=== PATIENT | female | born 1955 | race Caucasian/White ===

== ENCOUNTER 2017-07-15 06:24 | Inpatient (IN) | payer BC ==
[2017-07-15] VITALS (7 sets, daily range): BP systolic 97–154; BP diastolic 34–87
[~2017-07-15] VITALS: Ht 160 cm; Wt 77.1 kg
[2017-07-15] MEDS ORDERED: ONDANSETRON HCL 4MG/2ML VIAL IV STA (06:36)
[2017-07-15] MEDS ORDERED: SODIUM CHLORIDE 0.9% 500 ML IV ONE (06:36)
[2017-07-15] MEDS ORDERED: MORPHINE SULFATE 4 MG/ML CPJ (NOT FOR IM USE) IV STA (06:36)
[2017-07-15 07:13] LABS: BASOPHILS % 0.4 % (0.0-2.0); EOSINOPHILS % 0.6 % (0.0-5.0); HEMATOCRIT. 28.3 % (36.0-48.0); HEMOGLOBIN. 9.4 g/dL (12.0-16.0); LYMPHOCYTES % 18.6 % (20.0-50.0); MEAN CORPUSCULAR VOLUME 96.6 fL (81.0-99.0); MEAN PLATELET VOLUME 7.7 fl (7.4-10.4); MONOCYTES % 6.4 % (2.0-8.0); PLATELET 182 x1000/uL (130-400); RED BLOOD CELL COUNT 2.93 mill/uL (4.2-5.4); RED CELL DISTRIBUTION WIDTH 16.7 % (11.6-14.6)
[2017-07-15 07:19] LABS: CHLORIDE 100 mEq/L (98-107)
[2017-07-15 07:20] LABS: INR 1.2; PARTIAL THROMBOPLASTIN TIME 24.9 sec (23.4-31.0); PROTHROMBIN TIME 12.7 sec (9.4-11.6)
[2017-07-15 07:28] LABS: CARBON DIOXIDE 21 mEq/L (21-32); CREATINE KINASE 85 IU/L (26-192); TROPONIN I < 0.02 ng/mL (0.00-0.04)
[2017-07-15 07:33] LABS: CREATINE KINASE MB FRACTION 1.2 ng/mL (0.5-3.6)
[2017-07-15] MEDS ORDERED: ENOXAPARIN 80MG/0.8ML SYR SUBCUT ONE (07:45)
[2017-07-15] MEDS ORDERED: MORPHINE SULFATE 4 MG/ML CPJ (NOT FOR IM USE) IV ONE (08:00)
[2017-07-15] MEDS ORDERED: ONDANSETRON HCL 4MG/2ML VIAL IV ONE (08:00)
[2017-07-15] MEDS ORDERED: SODIUM CHLORIDE 0.9% 10ML VIAL ONE (09:05)
[2017-07-15] MEDS ORDERED: IOHEXOL-350 100 ML BOTTLE ONE (09:05)
[2017-07-15] MEDS ORDERED: LEVOFLOXACIN 500MG PREMIX 100 ML IV ONE (09:45)
[2017-07-15] MEDS ORDERED: LORAZEPAM 2MG/ML CPJ IV ONE (10:00)
[2017-07-15] MEDS ORDERED: CLONIDINE 0.1MG TABLET PO PRN (11:15)
[2017-07-15] MEDS ORDERED: IPRATROPIUM/ALBUTEROL 0.5-3(2.5)MG/3ML NEB INH PRN (11:15)
[2017-07-15] MEDS ORDERED: DIPHENHYDRAMINE 50MG/ML VIAL IV PRN (11:15)
[2017-07-15] MEDS: HYDROCODONE/ACETAMINOPHEN 5/325MG TABLET PO PRN ×3 (11:15→23:28)
[2017-07-15] MEDS ORDERED: ACETAMINOPHEN 325MG TABLET PO PRN (11:15)
[2017-07-15] MEDS ORDERED: ONDANSETRON HCL 4MG/2ML VIAL IV PRN (11:15)
[2017-07-15] MEDS ORDERED: DEXTROSE 50% WATER 50ML SYRINGE IV PRN (11:15)
[2017-07-15] MEDS ORDERED: IPRATROPIUM/ALBUTEROL 0.5-3(2.5)MG/3ML NEB HHN PRN (12:15)
[2017-07-15] MEDS ORDERED: BLOOD SUGAR DIAGNOSTIC STRIP TEST SCH (12:30)
[2017-07-15] MEDS ORDERED: INSULIN LISPRO 100 UNITS/ML SUBCUT SCH (13:00)
[2017-07-15] MEDS ORDERED: DOCUSATE SODIUM 100MG CAPSULE PO SCH (17:00)
[2017-07-15] MEDS ORDERED: GEMF600T3 PO (17:28)
[2017-07-15] MEDS ORDERED: TUMERIC (17:31)
[2017-07-15] MEDS ORDERED: TUM (17:31)
[2017-07-15] MEDS: ZOLPIDEM TARTRATE 5MG TABLET PO PRN (23:17)
[2017-07-16] VITALS (18 sets, daily range): BP systolic 91–136; BP diastolic 44–106
[2017-07-16] MEDS: HYDROCODONE/ACETAMINOPHEN 5/325MG TABLET PO PRN ×3 (04:28→14:17)
[2017-07-16 06:30] LABS: BASOPHILS % 0.4 % (0.0-2.0); EOSINOPHILS % 0.4 % (0.0-5.0); HEMATOCRIT. 25.2 % (36.0-48.0); HEMOGLOBIN. 8.4 g/dL (12.0-16.0); LYMPHOCYTES % 18.5 % (20.0-50.0); MEAN CORPUSCULAR HEMOGLOBIN 32.3 pg (28.0-32.0); MEAN CORPUSCULAR VOLUME 96.8 fL (81.0-99.0); MEAN PLATELET VOLUME 8.2 fl (7.4-10.4); MONOCYTES % 8.2 % (2.0-8.0); NEUTROPHILS % 72.5 % (40.0-76.0); PLATELET 170 x1000/uL (130-400); RED CELL DISTRIBUTION WIDTH 16.8 % (11.6-14.6)
[2017-07-16] MEDS: GEMFIBROZIL 600MG TABLET PO SCH ×2 (07:30→16:33)
[2017-07-16] MEDS ORDERED: IOHEXOL-300 100 ML BOTTLE ONE (08:03)
[2017-07-16] MEDS ORDERED: LIDOCAINE HCL 1% 20ML VIAL (Pyxis) INJ ONE (08:03)
[2017-07-16] MEDS ORDERED: SODIUM BICARBONATE 4% (2.4MEQ) 5ML VIAL IV ONE (08:03)
[2017-07-16 08:45] LABS: CARBON DIOXIDE 23 mEq/L (21-32); CHLORIDE 97 mEq/L (98-107)
[2017-07-16 08:49] LABS: HDL CHOLESTEROL 31 mg/dL (40-59); LDL CHOLESTEROL 138 mg/dL (5-100)
[2017-07-16] MEDS ORDERED: DOCUSATE SODIUM 250MG CAPSULE PO SCH (10:15)
[2017-07-16] MEDS ORDERED: BISACODYL 5MG TABLET PO PRN (10:15)
[2017-07-16] MEDS: LEVOFLOXACIN 500MG PREMIX 100 ML IV SCH (10:51)
[2017-07-16] MEDS: MORPHINE SULFATE 2 MG/ML CPJ (NOT FOR IM USE) IV PRN ×2 (16:25→20:30)
[2017-07-16] MEDS: ZOLPIDEM TARTRATE 5MG TABLET PO PRN (20:24)
[2017-07-17] VITALS (9 sets, daily range): BP systolic 99–161; BP diastolic 44–83
[2017-07-17] MEDS: MORPHINE SULFATE 2 MG/ML CPJ (NOT FOR IM USE) IV PRN (05:04)
[2017-07-17] MEDS: GEMFIBROZIL 600MG TABLET PO SCH (07:05)
[2017-07-17 08:21] LABS: CANCER ANTIGEN 125 109.3 U/mL (0.0-38.1)
[2017-07-17] MEDS ORDERED: DOCUSATE SODIUM 250MG CAPSULE PO SCH (09:00)
[2017-07-17] MEDS: LEVOFLOXACIN 500MG PREMIX 100 ML IV SCH (09:02)
[2017-07-17] MEDS: HYDROCODONE/ACETAMINOPHEN 5/325MG TABLET PO PRN (09:02)
[2017-07-17] MEDS ORDERED: LORAZEPAM 1MG TABLET PO PRN (11:00)
[2017-07-17] MEDS ORDERED: ATOR20TA PO (13:21)
[2017-07-17] MEDS ORDERED: LEVO500T2 PO (13:21)
[2017-07-17] MEDS ORDERED: HYDR-4001 PO (13:41)
== END 2017-07-17 14:35 | disposition home or self-care (01) | DRG 166 ==
LOC: ER 06:34 → 5EST 08:00 → EDBEDREQSVC 08:03 → EDBEDREQ 08:03 → ENRESERV 08:36
PROVIDERS: ADMIT Internal Medicine; ATTEND Internal Medicine
PROC: 06H03DZ Insertion of Intraluminal Device into Inferior Vena Cava, Percutaneous Approach (ICD-10-PCS; principal; 2017-07-16)
PROC: B5191ZA Fluoroscopy of Inferior Vena Cava using Low Osmolar Contrast, Guidance (ICD-10-PCS; 2017-07-16)
PROC: B549ZZA Ultrasonography of Inferior Vena Cava, Guidance (ICD-10-PCS; 2017-07-16)
DX: J18.9 Pneumonia, unspecified organism (principal); J96.00 Acute respiratory failure, unspecified whether with hypoxia or hypercapnia; I11.0 Hypertensive heart disease with heart failure; C78.00 Secondary malignant neoplasm of unspecified lung; I31.3 Pericardial effusion (noninflammatory); I50.9 Heart failure, unspecified; C55 Malignant neoplasm of uterus, part unspecified; D64.9 Anemia, unspecified; I82.402 Acute embolism and thrombosis of unspecified deep veins of left lower extremity; G95.29 Other cord compression; E78.1 Pure hyperglyceridemia; E78.5 Hyperlipidemia, unspecified; E78.00 Pure hypercholesterolemia, unspecified; M51.37 Other intervertebral disc degeneration, lumbosacral region; K59.00 Constipation, unspecified; M50.30 Other cervical disc degeneration, unspecified cervical region; G89.29 Other chronic pain; R73.9 Hyperglycemia, unspecified; R00.0 Tachycardia, unspecified; Z92.21 Personal history of antineoplastic chemotherapy; Z90.710 Acquired absence of both cervix and uterus; Z79.899 Other long term (current) drug therapy
CPT/HCPCS: 36415; 37191; 70450; 71010; 71275; 72141; 72146; 72148; 74000; 80053; 80061; 82378; 82550; 82553; 83036; 83605; 83690; 83880; 84443; 84484; 85025; 85610; 85730; 86301; 86304; 86850; 86900; 87040; 93005; 93306; 93970; 96372; 96374; 96375; 96376; 97162; 97166; 99291; A4216; C1725; C1769; C1880; J1644; J1650; J1956; J2060; J2270; J2405; J3490; J7040; J7050; Q9967

== ENCOUNTER 2017-07-19 02:19 | Inpatient (IN) | payer BC ==
[2017-07-19] VITALS (10 sets, daily range): BP systolic 92–116; BP diastolic 46–75
[~2017-07-19] VITALS: Ht 160 cm; Wt 86.6 kg
[~2017-07-19 02:19] MED LIST: ATOR20TA PO; HYDR-4001 PO; LEVO500T2 PO
[2017-07-19] MEDS ORDERED: ONDANSETRON HCL 4MG/2ML VIAL IV STA (03:31)
[2017-07-19] MEDS ORDERED: MORPHINE SULFATE 4 MG/ML CPJ (NOT FOR IM USE) IV STA (03:31)
[2017-07-19 04:09] LABS: BG BASE EXCESS -2.7 mmol/L (-2.0-2.0); BG CARBOXYHEMOGLOBIN 0.5 % (0.5-1.5); BG DEOXYHEMOGLOBIN 5.9 % (0.0-5.0); BG FRACTION INSPIRED OXYGEN 32; BG HCO3 ACT 20.7 mmol/L (22.0-26.0); BG METHEMOGLOBIN 0.1 % (0.0-1.5); BG OXYGEN SATURATION 94.1 % (92.0-98.5); BG OXYHEMOGLOBIN 93.5 % (94.0-97.0); BG PCO2 31.6 mmHg (35.0-45.0); BG PH 7.435 (7.350-7.450); BG PO2 75.3 mmHg (75.0-100.0); BG SAMPLE SITE LEFT BRACHIAL; BG TOTAL HEMOGLOBIN 11.3 g/dL (12.0-18.0); BG VENT MODE NASAL CANNULA
[2017-07-19 04:15] LABS: BASOPHILS % 0.6 % (0.0-2.0); HEMATOCRIT. 26.7 % (36.0-48.0); HEMOGLOBIN. 8.9 g/dL (12.0-16.0); LYMPHOCYTES % 7.8 % (20.0-50.0); MEAN CORPUSCULAR HEMOGLOBIN 32.1 pg (28.0-32.0); MEAN CORPUSCULAR VOLUME 96.5 fL (81.0-99.0); MEAN PLATELET VOLUME 8.6 fl (7.4-10.4); MONOCYTES % 4.9 % (2.0-8.0); NEUTROPHILS % 86.7 % (40.0-76.0); PLATELET 191 x1000/uL (130-400); RED BLOOD CELL COUNT 2.76 mill/uL (4.2-5.4); RED CELL DISTRIBUTION WIDTH 17.3 % (11.6-14.6)
[2017-07-19 04:18] LABS: INR 1.4; PARTIAL THROMBOPLASTIN TIME 34.2 sec (23.4-31.0); PROTHROMBIN TIME 14.5 sec (9.4-11.6)
[2017-07-19 04:24] LABS: CARBON DIOXIDE 24 mEq/L (21-32); CHLORIDE 99 mEq/L (98-107); TROPONIN I < 0.02 ng/mL (0.00-0.04)
[2017-07-19] MEDS ORDERED: SODIUM CHLORIDE 0.9% 1,000 ML IV SCH (04:30)
[2017-07-19] MEDS ORDERED: IBUPROFEN 600MG TABLET PO PRN (04:30)
[2017-07-19] MEDS ORDERED: ACETAMINOPHEN 325MG TABLET PO PRN ×2 (04:30→10:15)
[2017-07-19] MEDS ORDERED: VANCOMYCIN 1 G PREMIX 200 ML IV ONE (06:15)
[2017-07-19] MEDS ORDERED: PIPERACILLIN/TAZ 3.375G PREMIX 50 ML IV ONE (06:15)
[2017-07-19] MEDS: SODIUM CHLORIDE 0.9% 1,000 ML IV SCH ×2 (10:08→18:05)
[2017-07-19] MEDS ORDERED: HYDROCODONE/ACETAMINOPHEN 5/325MG TABLET PO PRN (10:15)
[2017-07-19] MEDS ORDERED: DIPHENHYDRAMINE 50MG/ML VIAL IV PRN (10:15)
[2017-07-19] MEDS ORDERED: CLONIDINE 0.1MG TABLET PO PRN (10:15)
[2017-07-19] MEDS ORDERED: GUAIFENESIN 200MG/10ML SUGAR FREE UDC PO PRN (10:15)
[2017-07-19] MEDS ORDERED: ONDANSETRON HCL 4MG/2ML VIAL IV PRN (10:15)
[2017-07-19] MEDS ORDERED: MAGNESIUM/ALUMINUM HYDROXIDE/SIMETHICONE 30ML UDC PO PRN (10:15)
[2017-07-19] MEDS ORDERED: MORPHINE SULFATE 4 MG/ML CPJ (NOT FOR IM USE) IV PRN (10:15)
[2017-07-19] MEDS: RIVAROXABAN 15 MG TABLET PO SCH ×2 (12:30→18:05)
[2017-07-19] MEDS: PIPERACILLIN/TAZ 3.375G PREMIX 50 ML IV SCH ×2 (12:57→21:33)
[2017-07-19] MEDS ORDERED: SODIUM CHLORIDE 0.9% 10ML VIAL ONE (13:02)
[2017-07-19] MEDS ORDERED: IOHEXOL-350 100 ML BOTTLE ONE (13:02)
[2017-07-19] MEDS: ALPRAZOLAM 0.25 MG TABLET PO PRN (16:26)
[2017-07-19] MEDS: DOCUSATE SODIUM 100MG CAPSULE PO PRN (22:13)
[2017-07-19] MEDS: VANCOMYCIN 1 G PREMIX 200 ML IV SCH (22:13)
[2017-07-20] VITALS (12 sets, daily range): BP systolic 91–123; BP diastolic 49–84
[2017-07-20] MEDS: ALPRAZOLAM 0.25 MG TABLET PO PRN ×2 (01:53→07:50)
[2017-07-20] MEDS: IPRATROPIUM/ALBUTEROL 0.5-3(2.5)MG/3ML NEB INH PRN (03:21)
[2017-07-20] MEDS: PIPERACILLIN/TAZ 3.375G PREMIX 50 ML IV SCH ×3 (04:12→20:22)
[2017-07-20] MEDS: SODIUM CHLORIDE 0.9% 1,000 ML IV SCH ×2 (06:40→20:23)
[2017-07-20 07:46] LABS: MEAN CORPUSCULAR HEMOGLOBIN 32.3 pg (28.0-32.0); MEAN CORPUSCULAR VOLUME 96.9 fL (81.0-99.0); PLATELET 215 x1000/uL (130-400); RED BLOOD CELL COUNT 2.48 mill/uL (4.2-5.4)
[2017-07-20] MEDS: RIVAROXABAN 15 MG TABLET PO SCH (07:50)
[2017-07-20 08:14] LABS: CARBON DIOXIDE 18 mEq/L (21-32); CHLORIDE 101 mEq/L (98-107); HDL CHOLESTEROL 23 mg/dL (40-59); LDL CHOLESTEROL 115 mg/dL (5-100)
[2017-07-20] MEDS: LORAZEPAM 2MG/ML CPJ IV PRN ×3 (08:23→21:42)
[2017-07-20] MEDS: DOCUSATE SODIUM 100MG CAPSULE PO PRN (08:23)
[2017-07-20] MEDS: ASPIRIN 81MG EC TABLET PO SCH (08:23)
[2017-07-20] MEDS: VANCOMYCIN 1 G PREMIX 200 ML IV SCH ×2 (08:24→21:33)
[2017-07-20] MEDS: IPRATROPIUM BROMIDE (0.02%) 0.5MG/2.5ML NEB HHN PRN (09:30)
[2017-07-20 10:50] LABS: BG BASE EXCESS -6.8 mmol/L (-2.0-2.0); BG CARBOXYHEMOGLOBIN 0.1 % (0.5-1.5); BG DEOXYHEMOGLOBIN 17.9 % (0.0-5.0); BG FRACTION INSPIRED OXYGEN 50; BG HCO3 ACT 16.8 mmol/L (22.0-26.0); BG METHEMOGLOBIN 0.3 % (0.0-1.5); BG OXYHEMOGLOBIN 81.7 % (94.0-97.0); BG PCO2 26.9 mmHg (35.0-45.0); BG PH 7.414 (7.350-7.450); BG PO2 50.4 mmHg (75.0-100.0); BG SAMPLE SITE RIGHT RADIAL; BG TOTAL HEMOGLOBIN 8.5 g/dL (12.0-18.0); BG VENT MODE MASK - VENTI
[2017-07-20 12:40] LABS: PLATELET ESTIMATE NORMAL
[2017-07-21] VITALS (18 sets, daily range): BP systolic 82–150; BP diastolic 55–93
[2017-07-21] MEDS: SODIUM CHLORIDE 0.9% 1,000 ML IV SCH (02:08)
[2017-07-21] MEDS: LORAZEPAM 2MG/ML CPJ IV PRN ×3 (03:00→15:47)
[2017-07-21] MEDS: IPRATROPIUM BROMIDE (0.02%) 0.5MG/2.5ML NEB HHN PRN (03:46)
[2017-07-21] MEDS: PIPERACILLIN/TAZ 3.375G PREMIX 50 ML IV SCH ×3 (04:30→20:11)
[2017-07-21 07:27] LABS: BASOPHILS % 0.1 % (0.0-2.0); EOSINOPHILS % 0.1 % (0.0-5.0); HEMATOCRIT. 22.7 % (36.0-48.0); HEMOGLOBIN. 7.4 g/dL (12.0-16.0); LYMPHOCYTES % 7.7 % (20.0-50.0); MEAN CORPUSCULAR HEMOGLOBIN 32.3 pg (28.0-32.0); MEAN CORPUSCULAR VOLUME 98.6 fL (81.0-99.0); MEAN PLATELET VOLUME 8.3 fl (7.4-10.4); MONOCYTES % 5.1 % (2.0-8.0); PLATELET 202 x1000/uL (130-400); RED CELL DISTRIBUTION WIDTH 17.2 % (11.6-14.6)
[2017-07-21] MEDS: VANCOMYCIN 1 G PREMIX 200 ML IV SCH (08:36)
[2017-07-21] MEDS: IPRATROPIUM/ALBUTEROL 0.5-3(2.5)MG/3ML NEB INH PRN (08:45)
[2017-07-21] MEDS ORDERED: LIDOCAINE HCL 1% 20ML VIAL (Pyxis) INJ ONE (09:08)
[2017-07-21] MEDS ORDERED: SODIUM BICARBONATE 4% (2.4MEQ) 5ML VIAL IV ONE (09:09)
[2017-07-21 09:40] LABS: BG BASE EXCESS -10.4 mmol/L (-2.0-2.0); BG CARBOXYHEMOGLOBIN 0.1 % (0.5-1.5); BG DEOXYHEMOGLOBIN 1.2 % (0.0-5.0); BG FRACTION INSPIRED OXYGEN 100; BG HCO3 ACT 14.9 mmol/L (22.0-26.0); BG METHEMOGLOBIN 0.4 % (0.0-1.5); BG OXYGEN SATURATION 98.8 % (92.0-98.5); BG OXYHEMOGLOBIN 98.3 % (94.0-97.0); BG PCO2 30.2 mmHg (35.0-45.0); BG PO2 170.8 mmHg (75.0-100.0); BG PRESSURE SUPPORT 7; BG SAMPLE SITE RIGHT BRACHIAL; BG VENT MODE MASK - BIPAP; BG VENT RATE 10 set
[2017-07-21] MEDS ORDERED: DEXTROSE 50% WATER 50ML SYRINGE IV PRN (10:15)
[2017-07-21] MEDS: DEXT 5%/0.45% NACL 1000ML 1,000 ML IV SCH (10:39)
[2017-07-21] MEDS: METHYLPREDNISOLONE SOD SUCC 40 MG/ML VIAL IV SCH ×2 (10:39→17:22)
[2017-07-21] MEDS: BLOOD SUGAR DIAGNOSTIC STRIP TEST SCH ×3 (11:18→20:47)
[2017-07-21] MEDS: INSULIN LISPRO 100 UNITS/ML SUBCUT SCH ×3 (11:33→20:50)
[2017-07-21] MEDS: IPRATROPIUM/ALBUTEROL 0.5-3(2.5)MG/3ML NEB HHN SCH ×4 (12:06→23:36)
[2017-07-21] MEDS: ASPIRIN 81MG EC TABLET PO SCH (14:25)
[2017-07-21] MEDS ORDERED: FUROSEMIDE 20MG/2ML VIAL IVP NR (19:00)
[2017-07-21] MEDS: HYDROCORTISONE ACETATE 25MG SUPP PR SCH (20:48)
[2017-07-22] VITALS (46 sets, daily range): BP systolic 85–136; BP diastolic 52–85
[2017-07-22] MEDS: LORAZEPAM 2MG/ML CPJ IV PRN ×2 (01:07→08:07)
[2017-07-22] MEDS: METHYLPREDNISOLONE SOD SUCC 40 MG/ML VIAL IV SCH ×3 (01:07→17:34)
[2017-07-22] MEDS: IPRATROPIUM/ALBUTEROL 0.5-3(2.5)MG/3ML NEB HHN SCH ×3 (03:35→20:07)
[2017-07-22] MEDS: PIPERACILLIN/TAZ 3.375G PREMIX 50 ML IV SCH ×3 (04:02→20:44)
[2017-07-22] MEDS: DEXT 5%/0.45% NACL 1000ML 1,000 ML IV SCH (06:03)
[2017-07-22] MEDS: BLOOD SUGAR DIAGNOSTIC STRIP TEST SCH ×5 (06:22→23:52)
[2017-07-22 06:30] LABS: HEMATOCRIT 26.5 % (36.0-48.0); HEMOGLOBIN 8.7 g/dL (12.0-16.0); MEAN CORPUSCULAR HEMOGLOBIN 31.5 pg (28.0-32.0); MEAN CORPUSCULAR VOLUME 95.5 fL (81.0-99.0); PLATELET 168 x1000/uL (130-400); RED BLOOD CELL COUNT 2.77 mill/uL (4.2-5.4); RED CELL DISTRIBUTION WIDTH 17.6 % (11.6-14.6)
[2017-07-22] MEDS: HYDROCORTISONE ACETATE 25MG SUPP PR SCH ×2 (08:05→20:44)
[2017-07-22] MEDS: ASPIRIN 81MG EC TABLET PO SCH (08:06)
[2017-07-22] MEDS: INSULIN LISPRO 100 UNITS/ML SUBCUT SCH ×4 (08:07→23:51)
[2017-07-22 08:56] LABS: BG BASE EXCESS -13.3 mmol/L (-2.0-2.0); BG CARBOXYHEMOGLOBIN 0.2 % (0.5-1.5); BG DEOXYHEMOGLOBIN 6.2 % (0.0-5.0); BG FRACTION INSPIRED OXYGEN 100; BG HCO3 ACT 12.3 mmol/L (22.0-26.0); BG METHEMOGLOBIN 0.4 % (0.0-1.5); BG OXYGEN SATURATION 93.8 % (92.0-98.5); BG OXYHEMOGLOBIN 93.2 % (94.0-97.0); BG PCO2 27.8 mmHg (35.0-45.0); BG PH 7.265 (7.350-7.450); BG PO2 86.1 mmHg (75.0-100.0); BG SAMPLE SITE RIGHT RADIAL; BG VENT MODE MASK - BIPAP; BG VENT RATE 10 set
[2017-07-22] MEDS ORDERED: VANCOMYCIN 1 G PREMIX 200 ML IV SCH (09:00)
[2017-07-22] MEDS ORDERED: ETOMIDATE 2MG/ML 10ML VIAL IV ONE (12:07)
[2017-07-22] MEDS: PROPOFOL 10MG/ML 100ML 100 ML IV PRN ×2 (12:18→20:36)
[2017-07-22] MEDS: PANTOPRAZOLE SODIUM 40 MG/VIAL IV SCH (13:08)
[2017-07-22 13:18] LABS: BG BASE EXCESS -11.5 mmol/L (-2.0-2.0); BG DEOXYHEMOGLOBIN 3.2 % (0.0-5.0); BG FRACTION INSPIRED OXYGEN 1005; BG HCO3 ACT 13.6 mmol/L (22.0-26.0); BG METHEMOGLOBIN 0.3 % (0.0-1.5); BG OXYGEN SATURATION 96.8 % (92.0-98.5); BG OXYHEMOGLOBIN 96.5 % (94.0-97.0); BG PCO2 28.1 mmHg (35.0-45.0); BG PH 7.302 (7.350-7.450); BG PO2 108.9 mmHg (75.0-100.0); BG SAMPLE SITE RIGHT RADIAL; BG TIDAL VOLUME(mL) 500 mL; BG TOTAL HEMOGLOBIN 9.4 g/dL (12.0-18.0); BG VENT MODE VENT - A/C; BG VENT RATE 14 set
[2017-07-22] MEDS ORDERED: SODIUM BICARBONATE 8.4% 1 MEQ/ML 50ML SYR IV SCH (13:45)
[2017-07-23] VITALS (75 sets, daily range): BP systolic 78–121; BP diastolic 48–83
[2017-07-23] MEDS: IPRATROPIUM/ALBUTEROL 0.5-3(2.5)MG/3ML NEB HHN SCH ×7 (00:01→23:19)
[2017-07-23] MEDS: METHYLPREDNISOLONE SOD SUCC 40 MG/ML VIAL IV SCH ×3 (01:40→18:18)
[2017-07-23] MEDS: DEXT 5%/0.45% NACL 1000ML 1,000 ML IV SCH (03:12)
[2017-07-23] MEDS: PIPERACILLIN/TAZ 3.375G PREMIX 50 ML IV SCH ×3 (03:57→19:58)
[2017-07-23] MEDS: PROPOFOL 10MG/ML 100ML 100 ML IV PRN (04:50)
[2017-07-23] MEDS: BLOOD SUGAR DIAGNOSTIC STRIP TEST SCH ×3 (06:00→18:41)
[2017-07-23 06:08] LABS: HEMATOCRIT. 24.6 % (36.0-48.0); HEMOGLOBIN. 8.3 g/dL (12.0-16.0); MEAN CORPUSCULAR HEMOGLOBIN 32.2 pg (28.0-32.0); MEAN CORPUSCULAR VOLUME 95.1 fL (81.0-99.0); MEAN PLATELET VOLUME 8.6 fl (7.4-10.4); PLATELET 125 x1000/uL (130-400); RED BLOOD CELL COUNT 2.59 mill/uL (4.2-5.4); RED CELL DISTRIBUTION WIDTH 17.8 % (11.6-14.6)
[2017-07-23] MEDS: INSULIN LISPRO 100 UNITS/ML SUBCUT SCH ×3 (06:15→18:42)
[2017-07-23 07:06] LABS: PHOSPHORUS 5.5 mg/dL (2.5-4.9)
[2017-07-23 07:38] LABS: CREATINE KINASE 178 IU/L (26-192)
[2017-07-23 07:55] LABS: BG BASE EXCESS -7.8 mmol/L (-2.0-2.0); BG CARBOXYHEMOGLOBIN 0.2 % (0.5-1.5); BG DEOXYHEMOGLOBIN 4.6 % (0.0-5.0); BG FRACTION INSPIRED OXYGEN 80; BG HCO3 ACT 16.8 mmol/L (22.0-26.0); BG METHEMOGLOBIN 0.3 % (0.0-1.5); BG OXYGEN SATURATION 95.4 % (92.0-98.5); BG OXYHEMOGLOBIN 94.9 % (94.0-97.0); BG PCO2 30.7 mmHg (35.0-45.0); BG PH 7.355 (7.350-7.450); BG PO2 91.9 mmHg (75.0-100.0); BG SAMPLE SITE RIGHT BRACHIAL; BG TIDAL VOLUME(mL) 500 mL; BG TOTAL HEMOGLOBIN 9.2 g/dL (12.0-18.0); BG VENT MODE VENT - A/C; BG VENT RATE 14 set
[2017-07-23] MEDS ORDERED: PROPOFOL 10MG/ML 100ML 100 ML IV PRN (09:07)
[2017-07-23] MEDS ORDERED: DEXTROSE 50% WATER 50ML SYRINGE IV PRN (09:15)
[2017-07-23] MEDS: HYDROCORTISONE ACETATE 25MG SUPP PR SCH ×2 (09:54→21:11)
[2017-07-23] MEDS: ASPIRIN 81MG EC TABLET PO SCH (09:54)
[2017-07-23] MEDS: PANTOPRAZOLE SODIUM 40 MG/VIAL IV SCH (09:55)
[2017-07-23] MEDS: MORPHINE SULFATE 4 MG/ML CPJ (NOT FOR IM USE) IV PRN ×3 (09:59→18:17)
[2017-07-23] MEDS: CITRIC ACID/SODIUM CITRATE SOLN 30ML UDC PO SCH ×3 (10:45→17:00)
[2017-07-23] MEDS ORDERED: BLOOD SUGAR DIAGNOSTIC STRIP TEST SCH (12:50)
[2017-07-23] MEDS ORDERED: INSULIN LISPRO 100 UNITS/ML SUBCUT SCH (13:20)
[2017-07-23] MEDS: LORAZEPAM 2MG/ML CPJ IV PRN (13:23)
[2017-07-23 13:30] LABS: NUCLEATED RED BLOOD CELLS 12 /100 WBC; PLATELET ESTIMATE NORMAL
[2017-07-23] MEDS ORDERED: SODIUM CHLORIDE 0.9% 250 ML IV SCH (14:00)
[2017-07-23] MEDS ORDERED: NOREPINEPHRINE 8 MG in DEXT 5% WATER 242 ML IV PRN (15:00)
[2017-07-23] MEDS: NOREPINEPHRINE 8 MG in DEXT 5% WATER 242 ML IV PRN (19:10)
[2017-07-24] VITALS (88 sets, daily range): BP systolic 67–119; BP diastolic 16–77
[2017-07-24] MEDS: INSULIN LISPRO 100 UNITS/ML SUBCUT SCH ×5 (00:04→23:37)
[2017-07-24] MEDS: DEXT 5%/0.45% NACL 1000ML 1,000 ML IV SCH (00:42)
[2017-07-24] MEDS: METHYLPREDNISOLONE SOD SUCC 40 MG/ML VIAL IV SCH ×3 (01:41→17:50)
[2017-07-24] MEDS: IPRATROPIUM/ALBUTEROL 0.5-3(2.5)MG/3ML NEB HHN SCH ×5 (03:08→20:48)
[2017-07-24] MEDS: PIPERACILLIN/TAZ 3.375G PREMIX 50 ML IV SCH ×2 (04:22→11:51)
[2017-07-24 05:50] LABS: HEMATOCRIT. 25.7 % (36.0-48.0); HEMOGLOBIN. 8.5 g/dL (12.0-16.0); MEAN CORPUSCULAR HEMOGLOBIN 31.8 pg (28.0-32.0); MEAN CORPUSCULAR VOLUME 96.5 fL (81.0-99.0); MEAN PLATELET VOLUME 9.2 fl (7.4-10.4); PLATELET 107 x1000/uL (130-400); RED BLOOD CELL COUNT 2.67 mill/uL (4.2-5.4); RED CELL DISTRIBUTION WIDTH 17.6 % (11.6-14.6)
[2017-07-24] MEDS: BLOOD SUGAR DIAGNOSTIC STRIP TEST SCH ×5 (06:00→23:31)
[2017-07-24] MEDS: MORPHINE SULFATE 4 MG/ML CPJ (NOT FOR IM USE) IV PRN ×4 (07:54→22:34)
[2017-07-24] MEDS: ASPIRIN 81MG EC TABLET PO SCH (08:09)
[2017-07-24] MEDS: PANTOPRAZOLE SODIUM 40 MG/VIAL IV SCH (08:09)
[2017-07-24] MEDS: HYDROCORTISONE ACETATE 25MG SUPP PR SCH ×2 (08:09→21:25)
[2017-07-24] MEDS: CITRIC ACID/SODIUM CITRATE SOLN 30ML UDC PO SCH ×3 (08:09→16:13)
[2017-07-24 08:16] LABS: BG BASE EXCESS -12.9 mmol/L (-2.0-2.0); BG CARBOXYHEMOGLOBIN 0.3 % (0.5-1.5); BG DEOXYHEMOGLOBIN 10.6 % (0.0-5.0); BG FRACTION INSPIRED OXYGEN 90; BG HCO3 ACT 14.2 mmol/L (22.0-26.0); BG METHEMOGLOBIN 0.2 % (0.0-1.5); BG OXYGEN SATURATION 89.3 % (92.0-98.5); BG OXYHEMOGLOBIN 88.9 % (94.0-97.0); BG PCO2 37.1 mmHg (35.0-45.0); BG PH 7.201 (7.350-7.450); BG PO2 74.9 mmHg (75.0-100.0); BG SAMPLE SITE RIGHT RADIAL; BG TIDAL VOLUME(mL) 500 mL; BG TOTAL HEMOGLOBIN 10.1 g/dL (12.0-18.0); BG VENT MODE VENT - A/C; BG VENT RATE 12 set
[2017-07-24] MEDS ORDERED: FUROSEMIDE 40MG/4ML VIAL IVP SCH (08:30)
[2017-07-24] MEDS ORDERED: SODIUM BICARBONATE 8.4% 1 MEQ/ML 50ML SYR IV SCH (08:30)
[2017-07-24] MEDS: SODIUM BICARBONATE 50 MEQ in SODIUM CHLORIDE 0.45% 1,000 ML IV SCH (09:39)
[2017-07-24] MEDS: LORAZEPAM 2MG/ML CPJ IV PRN (11:08)
[2017-07-24] MEDS: INSULIN DETEMIR UD 100 UNITS/ML SYR SUBCUT SCH (11:17)
[2017-07-24] MEDS ORDERED: PROPOFOL 10MG/ML 100ML 100 ML IV PRN (12:15)
[2017-07-24 13:48] LABS: NUCLEATED RED BLOOD CELLS 15 /100 WBC; PLATELET ESTIMATE SLIGHTLY DECREASED
[2017-07-24] MEDS: PIPERACILLIN/TAZ 2.25G PREMIX 50 ML IV SCH ×2 (17:50→23:36)
[2017-07-25] VITALS (91 sets, daily range): BP systolic 79–122; BP diastolic 45–86
[2017-07-25] MEDS: IPRATROPIUM/ALBUTEROL 0.5-3(2.5)MG/3ML NEB HHN SCH ×7 (00:49→19:35)
[2017-07-25] MEDS: METHYLPREDNISOLONE SOD SUCC 40 MG/ML VIAL IV SCH ×3 (02:00→17:48)
[2017-07-25] MEDS: MORPHINE SULFATE 4 MG/ML CPJ (NOT FOR IM USE) IV PRN ×3 (04:19→15:27)
[2017-07-25] MEDS: BLOOD SUGAR DIAGNOSTIC STRIP TEST SCH ×3 (05:08→18:12)
[2017-07-25] MEDS: PIPERACILLIN/TAZ 2.25G PREMIX 50 ML IV SCH ×3 (05:19→17:49)
[2017-07-25] MEDS: NOREPINEPHRINE 8 MG in DEXT 5% WATER 242 ML IV PRN (05:21)
[2017-07-25] MEDS: INSULIN LISPRO 100 UNITS/ML SUBCUT SCH ×3 (05:28→18:14)
[2017-07-25 06:09] LABS: HEMATOCRIT. 26.8 % (36.0-48.0); HEMOGLOBIN. 8.6 g/dL (12.0-16.0); MEAN CORPUSCULAR HEMOGLOBIN 31.7 pg (28.0-32.0); MEAN CORPUSCULAR VOLUME 98.9 fL (81.0-99.0); MEAN PLATELET VOLUME 9.2 fl (7.4-10.4); PLATELET 73 x1000/uL (130-400); RED BLOOD CELL COUNT 2.71 mill/uL (4.2-5.4); RED CELL DISTRIBUTION WIDTH 17.8 % (11.6-14.6)
[2017-07-25] MEDS ORDERED: DEXTROSE 50% WATER 50ML SYRINGE IV PRN (08:00)
[2017-07-25] MEDS: CITRIC ACID/SODIUM CITRATE SOLN 30ML UDC PO SCH ×3 (08:08→17:48)
[2017-07-25] MEDS: HYDROCORTISONE ACETATE 25MG SUPP PR SCH ×2 (08:09→20:48)
[2017-07-25] MEDS: PANTOPRAZOLE SODIUM 40 MG/VIAL IV SCH (08:09)
[2017-07-25] MEDS: ASPIRIN 81MG EC TABLET PO SCH (08:11)
[2017-07-25] MEDS ORDERED: INSULIN LISPRO 100 UNITS/ML SUBCUT SCH (08:20)
[2017-07-25 08:32] LABS: BG CARBOXYHEMOGLOBIN 0.3 % (0.5-1.5); BG DEOXYHEMOGLOBIN 10.1 % (0.0-5.0); BG FRACTION INSPIRED OXYGEN 100; BG HCO3 ACT 20.1 mmol/L (22.0-26.0); BG METHEMOGLOBIN 0.2 % (0.0-1.5); BG OXYGEN SATURATION 89.8 % (92.0-98.5); BG OXYHEMOGLOBIN 89.4 % (94.0-97.0); BG PCO2 47.6 mmHg (35.0-45.0); BG PH 7.243 (7.350-7.450); BG PO2 76.7 mmHg (75.0-100.0); BG SAMPLE SITE RIGHT RADIAL; BG TIDAL VOLUME(mL) 500 mL; BG TOTAL HEMOGLOBIN 9.4 g/dL (12.0-18.0); BG VENT MODE VENT - A/C; BG VENT RATE 12 set
[2017-07-25 09:01] LABS: PHOSPHORUS 8.9 mg/dL (2.5-4.9)
[2017-07-25] MEDS: PHENYLEPHRINE 40 MG in DEXT 5% WATER 246 ML IV PRN ×3 (09:55→20:48)
[2017-07-25] MEDS: INSULIN DETEMIR UD 100 UNITS/ML SYR SUBCUT SCH (10:10)
[2017-07-25] MEDS ORDERED: DIGOXIN 500MCG/2ML AMP IV NR ×2 (10:45→11:00)
[2017-07-25] MEDS ORDERED: BLOOD SUGAR DIAGNOSTIC STRIP TEST SCH (12:50)
[2017-07-25] MEDS ORDERED: VANCOMYCIN 750 MG PREMIX 150 ML IV NR (14:00)
[2017-07-25] MEDS: SODIUM BICARBONATE 50 MEQ in SODIUM CHLORIDE 0.45% 1,000 ML IV SCH ×3 (16:15)
[2017-07-25 16:35] LABS: NUCLEATED RED BLOOD CELLS 31 /100 WBC; PLATELET ESTIMATE DECREASED
[2017-07-25] MEDS: METOCLOPRAMIDE HCL 10MG/2ML VIAL IV SCH (17:49)
[2017-07-26] VITALS (64 sets, daily range): BP systolic 44–120; BP diastolic 19–78
[2017-07-26] MEDS: METOCLOPRAMIDE HCL 10MG/2ML VIAL IV SCH ×3 (00:06→12:48)
[2017-07-26] MEDS: MORPHINE SULFATE 4 MG/ML CPJ (NOT FOR IM USE) IV PRN (00:06)
[2017-07-26] MEDS: PIPERACILLIN/TAZ 2.25G PREMIX 50 ML IV SCH ×3 (00:06→12:48)
[2017-07-26] MEDS: INSULIN LISPRO 100 UNITS/ML SUBCUT SCH ×3 (00:08→12:00)
[2017-07-26] MEDS: BLOOD SUGAR DIAGNOSTIC STRIP TEST SCH ×3 (00:08→12:41)
[2017-07-26] MEDS: IPRATROPIUM/ALBUTEROL 0.5-3(2.5)MG/3ML NEB HHN SCH ×5 (00:18→16:00)
[2017-07-26] MEDS: METHYLPREDNISOLONE SOD SUCC 40 MG/ML VIAL IV SCH ×2 (01:26→09:54)
[2017-07-26] MEDS: SODIUM BICARBONATE 50 MEQ in SODIUM CHLORIDE 0.45% 1,000 ML IV SCH (06:01)
[2017-07-26] MEDS: PHENYLEPHRINE 40 MG in DEXT 5% WATER 246 ML IV PRN ×2 (06:02→12:43)
[2017-07-26 07:40] LABS: HEMATOCRIT. 26.5 % (36.0-48.0); HEMOGLOBIN. 8.5 g/dL (12.0-16.0); MEAN CORPUSCULAR HEMOGLOBIN 31.6 pg (28.0-32.0); MEAN CORPUSCULAR VOLUME 98.3 fL (81.0-99.0); MEAN PLATELET VOLUME 10.4 fl (7.4-10.4); PLATELET 54 x1000/uL (130-400); RED CELL DISTRIBUTION WIDTH 17.9 % (11.6-14.6)
[2017-07-26] MEDS ORDERED: MORPHINE SULFATE 250 MG in DEXT 5% WATER 240 ML IV PRN ×2 (08:30→09:15)
[2017-07-26] MEDS: ASPIRIN 81MG EC TABLET PO SCH (09:00)
[2017-07-26] MEDS: HYDROCORTISONE ACETATE 25MG SUPP PR SCH (09:00)
[2017-07-26] MEDS: PANTOPRAZOLE SODIUM 40 MG/VIAL IV SCH (09:54)
[2017-07-26] MEDS: INSULIN DETEMIR UD 100 UNITS/ML SYR SUBCUT SCH (10:00)
[2017-07-26 10:06] LABS: HEPATITIS B SURFACE ANTIGEN NEGATIVE
[2017-07-26 10:34] LABS: HEPATITIS B CORE AB IGM NEGATIVE
[2017-07-26 10:36] LABS: HEPATITIS A AB IGM NEGATIVE (NEGATIVE)
[2017-07-26 10:56] LABS: NUCLEATED RED BLOOD CELLS 20 /100 WBC; PLATELET ESTIMATE MARKEDLY DECREASED
[2017-07-26] MEDS ORDERED: LORAZEPAM 2MG/ML CPJ IV PRN (13:15)
[2017-07-26] MEDS ORDERED: METOCLOPRAMIDE HCL 10MG/2ML VIAL IV SCH (18:00)
== END 2017-07-26 19:29 | disposition expired | DRG 870 ==
LOC: ER 02:19 → EDBEDREQ 04:40 → ENRESERV 07:14 → 3WST 09:20 → CVICU 07-22 11:30
PROVIDERS: ADMIT Hospitalist; ATTEND Hospitalist
PROC: 02HV33Z Insertion of Infusion Device into Superior Vena Cava, Percutaneous Approach (ICD-10-PCS; 2017-07-21)
PROC: B548ZZA Ultrasonography of Superior Vena Cava, Guidance (ICD-10-PCS; 2017-07-21)
PROC: 30233N1 Transfusion of Nonautologous Red Blood Cells into Peripheral Vein, Percutaneous Approach (ICD-10-PCS; 2017-07-21)
PROC: 5A09457 Assistance with Respiratory Ventilation, 24-96 Consecutive Hours, Continuous Positive Airway Pressure (ICD-10-PCS; 2017-07-21)
PROC: 5A1955Z Respiratory Ventilation, Greater than 96 Consecutive Hours (ICD-10-PCS; principal; 2017-07-22)
PROC: 0BH17EZ Insertion of Endotracheal Airway into Trachea, Via Natural or Artificial Opening (ICD-10-PCS; 2017-07-22)
DX: A41.9 Sepsis, unspecified organism (principal); J96.01 Acute respiratory failure with hypoxia; N17.0 Acute kidney failure with tubular necrosis; J18.9 Pneumonia, unspecified organism; E87.2 Acidosis; J44.0 Chronic obstructive pulmonary disease with (acute) lower respiratory infection; C78.00 Secondary malignant neoplasm of unspecified lung; C79.51 Secondary malignant neoplasm of bone; D69.6 Thrombocytopenia, unspecified; E87.1 Hypo-osmolality and hyponatremia; C53.9 Malignant neoplasm of cervix uteri, unspecified; Z66 Do not resuscitate; D64.9 Anemia, unspecified; E78.5 Hyperlipidemia, unspecified; I10 Essential (primary) hypertension; F41.9 Anxiety disorder, unspecified; Z51.5 Encounter for palliative care; E78.1 Pure hyperglyceridemia; E11.9 Type 2 diabetes mellitus without complications; I48.91 Unspecified atrial fibrillation; I95.9 Hypotension, unspecified; Z79.899 Other long term (current) drug therapy; Z86.718 Personal history of other venous thrombosis and embolism; Z87.891 Personal history of nicotine dependence
CPT/HCPCS: 31500; 36415; 36569; 36600; 71010; 71275; 76770; 76937; 80048; 80053; 80061; 80202; 82375; 82550; 82805; 82962; 83605; 83735; 84100; 84478; 84484; 85025; 85027; 85610; 85730; 86705; 86709; 86803; 86850; 86900; 86920; 87040; 87070; 87340; 93005; 93970; 94002; 94003; 94640; 94660; 94664; 96361; 96365; 96367; 96375; 99291; A4216; C1725; C1893; C9113; J1160; J1815; J1940; J2060; J2270; J2274; J2370; J2405; J2543; J2704; J2765; J2920; J3370; J3490; J7030; J7040; J7050; J7060; J7620; P9016; Q9967; A4315